=== PATIENT | female | born 1995 | race Hispanic/Latino ===

== ENCOUNTER 2018-04-12 13:35 | Emergency (ER) | payer MEDICAID ==
[2018-04-12 14:56] VITALS: O2SAT 99
[2018-04-12] MEDS ORDERED: Tobramycin 0.3% OPHT SOLN OU ONE (15:46)
--- NOTE | 2018-04-12 16:02 | ED PDOC ---
HPI: Eye Injury/Pain Time Seen by Provider: 04/12/18 15:29 Chief Complaint (Nursing): Headache Chief Complaint (Provider): Headache and Eye Irritation History Per: Patient History/Exam Limitations: no limitations Onset/Duration Of Symptoms: Days (x 3) Current Symptoms Are (Timing): Still Present Injury To Eye?: No Wears Contact Lens?: No Associated Symptoms: Itching, Discharge From Eye (mucus), Other (increased tearing) Additional Complaint(s): 22 year old female with a history of chronic migraines presents to the ED for evaluation of increased tearing, itchiness and mucus discharge to the right eye for 3 days. Patient notes this morning, symptoms started to spread to left eye. She also complains of an ongoing migraine for the last 2 days located around the eyes, described as pressure, associated with photosensitivity. Patient reports symptoms are consistent with previous migraines. She suffers from chronic daily migraines and used to take Imitrex, but she has not taken it in 2 years and since she relocated from [place] has been unable to find a neurologist in the area. Patient is also requesting a referral for a neurologist . She took no medications prior to arrival. LMP was 03/17/2018. Denies contact lense use, foreign body sensation, trauma, dizziness, vision changes, nausea, vomiting, fever, neck stiffness/pain, numbness, weakness, shortness of breath, chest pain and sick contacts. PMD: none provided Past Medical History Reviewed: Historical Data, Nursing Documentation, Vital Signs Vital Signs: Last Vital Signs Temp 98.8 F 04/12/18 14:53 Pulse 119 H 04/12/18 14:53 Resp 16 04/12/18 14:53 BP 134/74 04/12/18 14:53 Pulse Ox 99 04/12/18 14:53 - Medical History PMH: Migraine (daily) - Surgical History Surgical History: No Surg Hx - Family History Family History: States: Unknown Family Hx - Social History Current smoker - smoking cessation education provided: No Alcohol: None Drugs: Denies - Home Medications Home Medications: Ambulatory Orders Medication Instructions Recorded RX: Naproxen 500 mg PO BID PRN #20 tab 04/12/18 RX: Tobramycin 0.3% [Tobrex 0.3% 1 drop OU Q6 #1 bottle 04/12/18 Oph Soln] - Allergies Allergies/Adverse Reactions: Allergies Allergy/AdvReac Type Severity Reaction Status Date / Time Penicillins Allergy ANAPHYLAXIS Verified 04/12/18 14:53 Review of Systems ROS Statement: Except As Marked, All Systems Reviewed And Found Negative Constitutional: Negative for: Fever Eyes: Positive for: Other (increased tearing, itchiness and mucus discharge). Negative for: Vision Change Cardiovascular: Negative for: Chest Pain Respiratory: Negative for: Shortness of Breath Musculoskeletal: Negative for: Neck Pain Neurological: Positive for: Headache. Negative for: Weakness, Numbness Physical Exam - Reviewed Nursing Documentation Reviewed: Yes Vital Signs Reviewed: Yes - Physical Exam Comments: GENERAL APPEARANCE: Patient is awake, alert, oriented x 3, in no acute distress. HEENT: (-) facial swelling and erythema, (-) facial blisters (-) periorbital edema, tenderness, or erythema VISUAL ACUITIES: Left eye: 20/20 ; Right eye: 20/25; Both: 20/20. LIDS & LASHES: Normal. (-) crusting, PUPILS: Pupils equally round and reactive. EOM's: Intact and painless. CONJUNCTIVAE: (+) faint conjuctival injection to right eye. Normal left eye. (+) scant amount of mucus discharge to medial canthus of right eye, (-) chemosis ANTERIOR CHAMBER: (-) foreign body, (-) hyphema. CARDIOVASCULAR: Regular rate and rhythm RESPIRATORY: Normal breath sounds, respirations nonlabored (-) respiratory distress. NECK: Supple, FROM (-) tenderness (-) lymphadenopathy NEURO: Mental status as above. Cranial nerves grossly intact. Cerebellar tests intact. Speech: clear. Gait: steady. (-) facial asymmetry - Laboratory Results Urine POC: Negative - ECG O2 Sat by Pulse Oximetry: 99 (RA) Pulse Ox Interpretation: Normal Medical Decision Making Medical Decision Makin:45 Clinical Impression: conjunctivitis, acute on chronic migraine headache Initial Plan: --Tobramycin 0.3% 1 drop OU --Toradol 30 mg IM -- POC Upreg: negative 1630 Repeat HR: 88 On re-evaluation, patient reports improvement of symptoms. On exam, patient rem ains AAOx3, in no acute distress. Vitals stable. Lab/Diagnostic results d/w the patient in great detail. Diagnosis of migraine headache, conjunctivitis d/w the patient. Based on history, exam and diagnostic results, plan will be for outpatient follow up with neuro/ophtho. Patient instructed to follow-up with pmd / referral provided / the clinic in 1- 2 days without fail. Advised to take medication as prescribed. Return to the emergency room at any time for any new or worsening symptoms. Patient states she fully agrees with and understands discharge instructions. States that she agrees with the plan and disposition. Verbalized and repeated discharge instructions and plan. I have given the patient opportunity to ask any additional questions. Scribe Attestation: Documented by Negra Smith, acting as a scribe for Kim Rodgers PA-C Provider Scribe Attestation: All medical record entries made by the Scribe were at my direction and personally dictated by me. I have reviewed the chart and agree that the record accurately reflects my personal performance of the history, physical exam, medical decision making, and the department course for this patient. I have also personally directed, reviewed, and agree with the discharge instructions and disposition. Disposition - Clinical Impression Clinical Impression: Chronic migraine, Conjunctivitis - Patient ED Disposition Is Patient to be Admitted: No Counseled Patient/Family Regarding: Studies Performed, Diagnosis, Need For Followup, Rx Given - Disposition Referrals: Zeeshan Amador MD [Staff Provider] - Blayne Tena MD [Medical Doctor] - Disposition: Routine/Home Disposition Time: 16:30 Condition: STABLE Additional Instructions: The emergency medical care you received today was directed at your acute symptoms. If you were prescribed any medication, please fill it and take as directed. It may take several days for your symptoms to resolve. Return to the Emergency Department if your symptoms worsen, do not improve, or if you have any other problems. Please contact your doctor in 2 days for re-evaluation and follow up / or call one of the physicians/clinics you have been referred to that are listed on the Patient Visit Information form that is included in your discharge packet. Bring any paperwork you were given at discharge with you along with any medications you are taking to your follow up visit. Our treatment cannot replace ongoing medical care by a primary care provider (PCP) outside of the emergency department. Prescriptions: RX: Naproxen 500 mg PO BID PRN #20 tab PRN Reason: Headache RX: Tobramycin 0.3% [Tobrex 0.3% Ophth Soln] 1 drop OU Q6 #1 bottle Instructions: Conjunctivitis ([place]), How to Use Eye Drops, Migraine Headaches in Adults Forms: [facility] (Amharic) Print Language: [place] - POA Present On Arrival: None
[2018-04-12 17:47] VITALS: BP 124/72; PULSE 88; RESP 18; TEMP 99.1
== END 2018-04-12 17:49 | disposition home or self-care (01) ==
LOC: H.ER 13:35
DX: G43.909 Migraine, unspecified, not intractable, without status migrainosus (principal); H10.9 Unspecified conjunctivitis
CPT/HCPCS: 81025; 96372; 99285; J1885